=== PATIENT | male | born 1950 | race Caucasian/White ===

== ENCOUNTER 2017-06-06 08:47 | Day surgery (SDC) | payer MEDICARE ==
[~2017-06-06] VITALS: Ht 167.6 cm; Wt 67.1 kg
[~2017-06-06 08:47] MED LIST: ASPI325EC PO; Antivert25 MG PO; Bystolic2.5 MG PO; ELIQUIS5 MG PO; MULVITB&C PO
[2017-06-06] MEDS ORDERED: Excedrin Extra1 EACH (08:58)
[2017-06-06] MEDS ORDERED: Vitamin B Comple1 EA (08:58)
== END 2017-06-06 10:20 | disposition home or self-care (01) ==
LOC: ORSCSDS 08:47
PROVIDERS: Surgery
PROC: 0DJD8ZZ Inspection of Lower Intestinal Tract, Via Natural or Artificial Opening Endoscopic (ICD-10-PCS; principal; 2017-06-06 10:15)
DX: Z12.11 Encounter for screening for malignant neoplasm of colon (principal); Z86.010 Personal history of colon polyps; K64.8 Other hemorrhoids; I10 Essential (primary) hypertension; Z79.899 Other long term (current) drug therapy
CPT/HCPCS: J7120

== ENCOUNTER 2018-01-07 18:26 | Emergency (ER) | payer MEDICARE ==
[~2018-01-07] VITALS: Ht 167.6 cm; Wt 68.0 kg
[~2018-01-07 18:26] MED LIST changes: +Excedrin Extra1 EACH; +Vitamin B Comple1 EA
[2018-01-07 19:53] LABS: Hematocrit 39.2 % (37.0-53.0); Hemoglobin 13.1 g/dL (13.5-17.5); Mean Corpuscular HGB 31.2 pg (26.0-34.0); Mean Corpuscular HGB Conc 33.4 g/dL (31.5-36.5); Mean Corpuscular Volume 93 fL (80-100); Platelet Count 99 K/mm3 (150-400); RDW Coefficient Variation 12.7 % (11.7-14.2); RDW Standard Deviation 43.6 fL (35.1-46.3); White Blood Cell Count 5.89 K/mm3 (4.00-11.30)
[2018-01-07 20:15] LABS: Troponin I <0.015 ng/mL (0.000-0.040)
[2018-01-07 20:16] LABS: Anion Gap 9 mmol/L (6-16); Blood Urea Nitrogen 21 mg/dL (8-24); CO2, Blood 27 mmol/L (21-32); Chloride, Blood 108 mmol/L (98-108); Glomerular Filtration Rate >60 (60-); Glucose, Blood 88 mg/dL (70-99); Potassium, Blood 4.2 mmol/L (3.5-5.5); Sodium, Blood 144 mmol/L (136-145)
[2018-01-07] MEDS ORDERED: Norco 5-325 Ta1 EACH PO (20:33)
== END 2018-01-07 20:50 | disposition home or self-care (01) ==
LOC: ER 18:26
PROVIDERS: Emergency Medicine
DX: R07.9 Chest pain, unspecified (principal); I10 Essential (primary) hypertension; I48.92 Unspecified atrial flutter; Z79.899 Other long term (current) drug therapy; Z79.01 Long term (current) use of anticoagulants
CPT/HCPCS: 36415; 71045; 80048; 84484; 85027; 93005; 93010; 99285-25

== ENCOUNTER 2018-06-25 06:28 | Day surgery (SDC) | payer MEDICARE ==
[~2018-06-25] VITALS: Ht 167.6 cm; Wt 69.0 kg
[~2018-06-25 06:28] MED LIST changes: +Norco 5-325 Ta1 EACH PO
[2018-06-25] MEDS ORDERED: METO25ER PO (06:56)
[2018-06-25] MEDS ORDERED: Lisinopril2.5 MG PO (06:57)
--- NOTE | 2018-06-25 07:33 | NUR ---
KRYSTLE LOPEZ FROM [facility] IN ROOM TO INTERROGATE PT'S DPPM. DR MONTES IN ROOM TO SEE PT.
--- NOTE | 2018-06-25 08:13 | NUR ---
DR BOOKER IN ROOM.
--- NOTE | 2018-06-25 08:40 | NUR ---
TONI COMPLETE AT 0833. PT CARDIOVERTED WITH 200J SYNCHRONIZED SHOCK AFTER COMPLETION OF TONI. PT TOLERATED WELL.
--- NOTE | 2018-06-25 08:43 | NUR ---
KRYSTLE LOPEZ BACK IN ROOM FOR DPPM INTERROGATION.
--- NOTE | 2018-06-25 09:07 | NUR ---
PT'S IN ROOM. PT TALKING WITH .
--- NOTE | 2018-06-25 09:30 | NUR ---
DISCHARGE INSTRUCTIONS REVIEWED ALL QUESTIONS ANSWERED. PT DRANK SIPS OF WATER WITH NO ASPIRATION.
--- NOTE | 2018-06-25 09:39 | NUR ---
18 G IV DISCONTINUED FROM RIGHT AC WITH INTACT CANNULA. PT ESCORTED OUT VIA WHEELCHAIR ESCORT.
[2018-07-11] MEDS ORDERED: NEBI5 PO (12:32)
== END 2018-06-25 23:03 | disposition home or self-care (01) ==
LOC: MHTC 06:28
DX: I48.91 Unspecified atrial fibrillation (principal); I50.1 Left ventricular failure, unspecified; Z95.0 Presence of cardiac pacemaker
CPT/HCPCS: 92960; 93005; 93010; 93312; 93325; J2250; J7120

== ENCOUNTER 2018-07-12 08:51 | Day surgery (SDC) | payer MEDICARE ==
[~2018-07-12] VITALS: Ht 167.6 cm; Wt 68.0 kg
[~2018-07-12 08:51] MED LIST changes: +Lisinopril2.5 MG PO; +METO25ER PO; +NEBI5 PO
--- NOTE | 2018-07-12 09:06 | NUR ---
PT BROUGHT BACK FOR CARDIOVERSION. UPON CHECKING ROUTE DRIVER COIN MACHINES TO BE PACED. EKG ORDERED.
--- NOTE | 2018-07-12 09:32 | NUR ---
DR SALAS, ANESTHESIOLOGIST TO ROOM. EKG OBTAINED. SHOWS AV DUAL PACED. DR LUEVANO CONTACTED, PACEMAKER INTERRIGATED BY RENETTA CORONEL RN.
--- NOTE | 2018-07-12 09:40 | NUR ---
DR LUEVANO IN ROOM DISCUSSING PLAN OF CARE. CARDIOVERSION CANCELLED. NEW ORDERS IN PLACE. VSS. NADN. S/O AT BEDSIDE
== END 2018-07-12 22:46 | disposition home or self-care (01) ==
LOC: MHTC 08:51 → ORD 08:51
DX: I48.91 Unspecified atrial fibrillation (principal); E54 Ascorbic acid deficiency
CPT/HCPCS: 93005; 93010; 93288

== ENCOUNTER 2020-10-29 11:41 | Emergency (ER) | payer OTHER ==
[~2020-10-29] VITALS: Ht 167.6 cm; Wt 68.0 kg
[2020-10-29] MEDS ORDERED: Tambocor100 MG PO (12:33)
[2020-10-29] MEDS ORDERED: TAMS.4ER (12:34)
[2020-10-29] MEDS ORDERED: TRAM50 PO (12:34)
[2020-10-29 12:47] LABS: BASOPHILS ABSOLUTE AUTO 0.05 K/mm3 (0.00-0.23); BASOPHILS PERCENT AUTO 1 % (0-2); EOSINOPHILS ABSOLUTE AUTO 0.13 K/mm3 (0.00-0.68); EOSINOPHILS PERCENT AUTO 2 % (0-6); Hematocrit 44.9 % (37.0-53.0); Hemoglobin 14.8 g/dL (13.5-17.5); IMMATURE GRAN ABSOLUTE AUTO 0.05 K/mm3 (0.00-0.10); IMMATURE GRAN PERCENT AUTO 1 % (0-1); LYMPHOCYTES ABSOLUTE AUTO 1.91 K/mm3 (0.84-5.20); LYMPHOCYTES PERCENT AUTO 24 % (21-46); MONOCYTES ABSOLUTE AUTO 0.63 K/mm3 (0.16-1.47); MONOCYTES PERCENT AUTO 8 % (4-13); Mean Corpuscular HGB 31.6 pg (26.0-34.0); Mean Corpuscular Volume 96 fL (80-100); Mean Platelet Volume 9.9 fL (9.1-12.4); NEUTROPHILS ABSOLUTE AUTO 5.27 K/mm3 (1.96-9.15); NEUTROPHILS PERCENT AUTO 66 % (41-73); Platelet Count 138 K/mm3 (150-400); RDW Coefficient Variation 12.6 % (11.7-14.2); RDW Standard Deviation 43.9 fL (35.1-46.3); Red Blood Cell Count 4.69 M/mm3 (4.30-5.90); White Blood Cell Count 8.04 K/mm3 (4.00-11.30)
[2020-10-29 13:04] LABS: Alanine Aminotransfer (ALT/SGP 18 U/L (12-78); Albumin, Blood 3.3 g/dL (3.4-5.0); Albumin/Globulin Ratio 0.9 (0.8-1.8); Alk Phos 72 U/L (50-136); Anion Gap 4 mmol/L (6-16); Aspartate Aminotrans (AST/SGOT 20 U/L (12-37); Bilirubin, Total 0.9 mg/dL (0.1-1.0); Blood Urea Nitrogen 24 mg/dL (8-24); Bun/Creatinine Ratio 19.2 (12.0-20.0); CO2, Blood 21 mmol/L (21-32); Calcium, Blood 8.6 mg/dL (8.5-10.1); Chloride, Blood 108 mmol/L (98-108); Creatinine, Blood 1.25 mg/dL (0.60-1.20); Globulin, Blood 3.8 g/dL (2.2-4.0); Glomerular Filtration Rate >60 (60-); Glucose, Blood 98 mg/dL (70-99); Potassium, Blood 4.9 mmol/L (3.5-5.5); Sodium, Blood 133 mmol/L (136-145); Total Protein, Blood 7.1 g/dL (6.4-8.2); Troponin I <0.015 ng/mL (0.000-0.040)
== END 2020-10-29 14:45 | disposition home or self-care (01) ==
LOC: ER 11:41
PROVIDERS: Physician Assistant
DX: R00.0 Tachycardia, unspecified (principal); I10 Essential (primary) hypertension; Z79.899 Other long term (current) drug therapy; Z95.0 Presence of cardiac pacemaker; Z88.6 Allergy status to analgesic agent
CPT/HCPCS: 36415; 80053; 83880; 84484; 85025; 93005; 93010; 99284-25; A9270; J7030

== ENCOUNTER → 2021-12-12 | Outpatient (CLI) | payer OTHER ==
[~2021-12-12] MED LIST changes: +TAMS.4ER; +TRAM50 PO; +Tambocor100 MG PO
[2021-12-13 13:27] LABS: Stool Occult Bld Immuno 1 Negative (NEGATIVE)
== END | disposition home or self-care (01) ==
LOC: LAB 15:40 → LAB SHORT 15:40
PROVIDERS: Hospitalist
DX: Z12.11 Encounter for screening for malignant neoplasm of colon (principal)
CPT/HCPCS: 82274

== ENCOUNTER → 2022-12-22 | Outpatient (CLI) | payer OTHER ==
[2022-12-23 10:14] LABS: Bacteria Not Seen /hpf; Red Blood Cells, Urine Not Seen /hpf (0-2); Squamous Epithelial Cells Not Seen /hpf (Few); White Blood Cells, Urine 0-2 /hpf (0-5)
== END | disposition home or self-care (01) ==
LOC: LAB 08:18 → LAB SHORT 08:18
PROVIDERS: Hospitalist
DX: R31.29 Other microscopic hematuria (principal)
CPT/HCPCS: 81015